=== PATIENT | female | born 1990 | race American Indian/Alaskan Native ===

== ENCOUNTER 2019-03-03 20:44 | Inpatient (IN) | payer MEDICAID, OTHER ==
[2019-03-03] MEDS ORDERED: SUBLIMAZE IV PRN (21:05)
[2019-03-03] MEDS ORDERED: BRETHINE SUB-Q PRN (21:05)
[2019-03-03] MEDS ORDERED: XYLOCAINE 2% INFILTRATI ONE (21:05)
--- NOTE | 2019-03-03 21:24 | History and Physical Report ---
History of Present Illness Date of examination: 03/03/19 Date of admission: 03/03/19 21:03 Chief complaint: Contractions History of present illness: 28 year old female presents to L&D in active labor with advanced cervical dilation. Patient states her contractions began early this morning and she thinks her water may have broken around 2:00 PM today. Patient reports decreased movement for the past couple of weeks. Patient received care at [facility] and records are available. LMP 06/18/18. EDC 03/18/19. significant for the following: late care, varicella nonimmune, vitamin D deficiency (supplemented with Vitamin D), ASCUS pap, + HPV, elevated 1 hour sugar test with normal 3 hour OGTT. labs are as follows: O+, antibody screen negative, rubella immune, hepatitis B surface antigen negative, RPR nonreactive, HIV negative, hemoglobin electrophoresis AA, quad screen negative, 1 hour sugar test 143 (3 hour OGTT 69, 118, 107, 105), GBS negative. Past History Past Medical History: no pertinent history Past Surgical History: no surgical history [facility] History: abnormal PAP smear (ASCUS, + HPV). denies: chlamydia, gonorrhea, hepatitis B, hepatitis C, herpes, HIV, syphilis, trichomonas Family/Genetic History: none Social history: lives with family, full code. denies: smoking, alcohol abuse, prescription drug abuse, IV drug use - Obstetrical History Expected Date of Delivery: 03/18/19 Actual Gestation: 37 Week(s) 6 Day(s) : 1 Para: 0 Hx # Term Pregnancies: 0 Number of Pregnancies: 0 Spontaneous Abortions: 0 Induced : 0 Number of Living Children: 0 Medications and Allergies Allergies Allergy/AdvReac Type Severity Reaction Status Date / Time No Known Allergies Allergy Verified 03/03/19 20:51 Home Medications Medication Instructions Recorded Confirmed Last Taken Type Ciprofloxacin HCl [Cipro] 500 mg PO Q12H #10 tab 09/06/13 Unknown Rx Diphenoxylate/Atropine [Lomotil] 1 tab PO Q4H PRN #10 tablet 09/06/13 Unknown Rx Ondansetron [Zofran Odt] 4 mg PO Q4-6H PRN #14 tab.rapdis 09/06/13 Unknown Rx Review of Systems All systems: negative (contractions) - Vital Signs Vital signs: Vital Signs Pulse BP 110 H 119/77 03/03/19 21:12 03/03/19 21:12 Temp Pulse Resp BP Pulse Ox 110 H 119/77 03/03/19 21:12 03/03/19 21:12 - Physical Exam Abdomen: Positive: normal appearance, soft. Negative: distention, tenderness, guarding, rigidity Genitourinary (Female): Positive: normal external genitalia, normal perenium. Negative: perineal/vulvar lesions (no lesions noted on careful exam with bright light upon admission) Vagina: Positive: normal moisture Uterus: Positive: enlarged (S=D) Anus/Rectum: Positive: normal perianal skin Extremities: Positive: normal. Negative: tenderness, edema - Obstetrical FHR: category 2 FHR comments: FHR baseline 135 with minimal variability and early and late decelerations noted. Patient positioned in lateral position and oxygen applied per face mask; IV fluid bolus given. Uterine Contraction Monitor Mode: External Cervical Dilatation: 7 Cervical Effacement Percentage: 90 station: -1 Uterine Contraction Pattern: Regular Uterine Contraction Intensity: Moderate Results All other labs normal. Assessment and Plan A: at 37 weeks, 6 days gestation. Active labor with advanced cervical dilation. GBS negative. Category 2 heart rate tracing. P: Admit. Continuous EFM. IV fluids, O2, lateral positioning. Will observe closely and expedite if FHR tracing does not improve with interventions.
[2019-03-03] MEDS ORDERED: PITOCin/NS 20 UNIT/1000ML DRIP 20 UNITS/1,000 ML BAG IV SCH (22:00)
[2019-03-03] MEDS ORDERED: LACTATED RINGERS 1,000 ML IV SCH (22:00)
[2019-03-03 22:13] LABS: Hematocrit 39.4 % (30.3-42.9); Hemoglobin 13.3 gm/dl (10.1-14.3); Mean Corpuscular HGB Conc 34 % (30-34); Mean Corpuscular Volume 91 fl (79-97); Platelet Count 249 K/mm3 (140-440); Red Blood Count 4.32 M/mm3 (3.65-5.03); Red Cell Distribution Width 14.3 % (13.2-15.2)
--- NOTE | 2019-03-03 22:28 | Event Note ---
Date: 03/03/19 FSE placed to better trace FHR. Patient in left lateral position with IV fluid bolus and oxygen per face mask at 10 LPM. Drug screen ordered. Consulted with Dr. Pepe re: FHR tracing and cervical exam and interventions taken. FHR variability improving.
--- NOTE | 2019-03-04 00:04 | Event Note ---
Date: 03/04/19 SVE: /0. FHR baseline 135 with moderate variability and accelerations. Occasional early FHR deceleration and occasional brief variable FHR deceleration with rapid return to baseline. VSS. Patient declined epidural.
[2019-03-04] MEDS ORDERED: XYLOCAINE 2% INFILTRATI ONE (00:24)
[2019-03-04] MEDS ORDERED: DERMOPLAST TP PRN (01:19)
[2019-03-04] MEDS ORDERED: LANSINOH TP PRN (01:19)
[2019-03-04] MEDS ORDERED: MILK OF MAGNESIA PO PRN (01:19)
[2019-03-04] MEDS ORDERED: NORCO 5/325 PO PRN (01:19)
[2019-03-04] MEDS ORDERED: TUCKS PAD TP PRN (01:19)
--- NOTE | 2019-03-04 01:29 | Procedure Note ---
OB Delivery Note - Delivery Date of Delivery: 03/04/19 Surgeon: LUANA GONZALEZ Estimated blood loss: 200cc - Vaginal Delivery presentation: vertex Delivery position: OA Intrapartum events: none Delivery induction: none Delivery monitor: external FHT, external uterine Route of delivery: Delivery placenta: spontaneous Delivery cord: 3 umbilical vessels Episiotomy: midline Delivery repair: vicryl Anesthesia: local Delivery comments: Spontaneous vaginal delivery at 00:38 of liveborn male in INES position weighing 6 lb. 2 oz. over 2nd degree midline episiotomy with apgars of 8/9. Baby placed skin to skin with mom immediately after delivery. Spontaneous cry and respirations. Baby dried with warm towels and mouth suctioned with bulb syringe. 3 vessel cord double clamped and cut after cessation of pulsation. Cord blood obtained. Spontaneous delivery of intact placenta and membranes by armijo mechanism. EBL 200 cc. Pitocin to IV fluids after delivery of placenta. Fundus firm and midline. 2nd degree midline episiotomy repaired with 2-0 vicryl in usual sterile fashion under Lidocaine local. No other lacerations noted. Vaginal sweep negative. Sponge count correct. Mother and baby stable in birthing room.
[2019-03-04] MEDS ORDERED: SODIUM CHLORIDE FLUSH SYRINGE 10 ML IV NR (02:00)
[2019-03-04] MEDS: IBUPROFEN PO SCH ×4 (03:56→18:20)
[2019-03-04] MEDS: COLACE PO SCH ×2 (03:57→10:00)
[2019-03-04 14:26] LABS: Hematocrit 30.9 % (30.3-42.9); Hemoglobin 10.2 gm/dl (10.1-14.3)
[2019-03-05] MEDS: IBUPROFEN PO SCH ×3 (00:56→13:40)
[2019-03-05] MEDS ORDERED: BOOSTRIX IM ONE (06:00)
[2019-03-05] MEDS: COLACE PO SCH (09:11)
--- NOTE | 2019-03-05 11:08 | Progress Note ---
Assessment and Plan - Patient Problems (1) (normal spontaneous vaginal delivery) Current Visit: Yes Status: Acute Plan to address problem: Continue routine PP orders Anticipate d/c home tomorrow (2) Anemia Current Visit: Yes Status: Acute Qualifiers: Anemia type: other cause Other causes of anemia: acute posthemorrhagic Qualified Code(s): D62 - Acute posthemorrhagic anemia Plan to address problem: Asymptomatic Increase iron rich foods into diet Ferrous sulfate 325mg po QD Subjective - Subjective Date of service: 03/05/19 Principal diagnosis: ; Anemia Interval history: See admission H & P; OB delivery summary and PP progress notes Patient reports: appetite normal, voiding normally, pain well controlled, fl atus, ambulating normally : doing well, bottle feeding (and ) Objective - Vital Signs Latest vital signs: Vital Signs Temp Pulse Resp BP BP Pulse Ox 03/05/19 00:50 98.0 F 75 20 100/55 96 03/04/19 16:28 98.0 F 75 18 103/63 03/04/19 13:04 97.6 F 99 H 18 106/58 98 Intake and Output 03/04/19 03/05/19 03/05/19 23:59 07:59 15:59 Intake Total 720 240 Balance 720 240 Intake: Oral 720 240 Other: Total, Intake Amount 240 240 # Voids Void 1 1 - Exam Breasts: Present: normal Cardiovascular: Present: Regular rate Lungs: Present: Normal air movement Abdomen: Present: soft Uterus: Present: firm, fundal height below umbilicus (U-2) Extremities: Present: normal Deep Tendon Reflex Grade: Normal +2
--- NOTE | 2019-03-05 11:15 | Discharge Summary ---
Providers - Providers Date of Admission: 03/03/19 21:08 Date of discharge: 03/06/19 (1200) Attending physician: NO RUTH MD Primary care physician: NO RUTH MD Hospitalization Reason for admission: IUP at term Delivery: Episiotomy: none Laceration: none Other procedures: none complications: none Discharge diagnosis: other (; Anemia) baby: male Hospital course: See admission H & P; OB delivery summary and PP progress notes Condition at discharge: Stable Disposition: DC-01 TO HOME OR SELFCARE - Discharge Diagnoses (1) (normal spontaneous vaginal delivery) Status: Acute (2) Anemia Status: Acute Qualifiers: Anemia type: other cause Other causes of anemia: acute posthemorrhagic Qualified Code(s): D62 - Acute posthemorrhagic anemia Plan - Discharge Medications Prescriptions: Ferrous Sulfate [Ferrous Sulfate 324 MG] 324 mg PO DAILY 30 Days #30 tablet.dr - Provider Discharge Summary Activity: routine, no sex for 6 weeks, no heavy lifting 4 weeks, no strenuous exercise Diet: other (Iron rich diet) Instructions: routine Additional instructions: [] Smoking cessation referral if applicable(refer to patient education folder for contact #) [] Refer to [facility] Booklet Call your doctor immediately for: * Fever > 100.5 * Heavy vaginal bleeding ( >1 pad per hour) * Severe persistent headache * Shortness of breath * Reddened, hot, painful area to leg or breast * Drainage or odor from incision. * Continue daily oral iron supplementation as directed - Follow up plan Follow up: NO RUTH MD [Primary Care Provider] - 6 Weeks
[2019-03-05] MEDS ORDERED: AFLURIA QUAD 2019-2020 (3YR UP) IM ONE (12:00)
[2019-03-05] MEDS ORDERED: FEOSOL PO SCH (12:00)
[2019-03-05 18:44] VITALS: BP 108/65
== END 2019-03-05 17:48 | disposition home or self-care (01) | DRG 775 ==
LOC: TRG 20:44 → LD 21:03 → UNDOADMIN 21:03 → LD 21:08 → OB 03-04 02:31
PROVIDERS: ADMIT Obstetrics & Gynecology; ATTEND Obstetrics & Gynecology
PROC: 10E0XZZ Delivery of Products of Conception, External Approach (ICD-10-PCS; principal; 2019-03-04)
PROC: 0W8NXZZ Division of Female Perineum, External Approach (ICD-10-PCS; 2019-03-04)
PROC: 3E0234Z Introduction of Serum, Toxoid and Vaccine into Muscle, Percutaneous Approach (ICD-10-PCS; 2019-03-05)
DX: O76 Abnormality in fetal heart rate and rhythm complicating labor and delivery (principal); O99.02 Anemia complicating childbirth; D62 Acute posthemorrhagic anemia; Z3A.37 37 weeks gestation of pregnancy; Z37.0 Single live birth; Z79.899 Other long term (current) drug therapy; Z23 Encounter for immunization
CPT/HCPCS: 36415; 85014; 85018; 85027; 86592; 86850; 86900; 86901; 90471; 90686; G0378; J2590; J3010; J7120